=== PATIENT | female | born 1970 | race Caucasian/White ===

== ENCOUNTER 2018-09-09 06:10 | Day surgery (SDC) | payer OTHER ==
[~2018-09-09] VITALS: Ht 160 cm; Wt 63.5 kg
[2018-09-09] MEDS ORDERED: CEFAZOLIN 2 GM IVPB PREMIX 50 ML IV ONE (07:54)
[2018-09-09] MEDS ORDERED: fentaNYL CITRATE/PF 100 MCG/2 ML AMP IVP ONE (08:00)
[2018-09-09] MEDS ORDERED: WATER FOR IRRIGATION,STERILE 1,000 ML IRRIG.SOLN IR ONE (08:00)
[2018-09-09] MEDS ORDERED: SEVOFLURANE 15 MIN GAS INH ONE (08:00)
[2018-09-09] MEDS ORDERED: LR 1,000 ML IV.SOLN IV ONE (08:00)
[2018-09-09] MEDS ORDERED: MIDAZOLAM HCL 5 MG/5 ML VIAL IVP ONE (08:00)
[2018-09-09] MEDS ORDERED: ONDANSETRON HCL 4 MG/2 ML VIAL IVP ONE (08:00)
[2018-09-09] MEDS ORDERED: ROCURONIUM BROMIDE 10 MG/ML (ZEMURON) IV ONE (08:00)
[2018-09-09] MEDS ORDERED: PROPOFOL 200MG/ 20ML VIAL (DIPRIVAN) IV ONE (08:00)
[2018-09-09] MEDS ORDERED: DEXAMETHASONE SOD PHOSPHATE 4 MG/ML VIAL IVP ONE (08:00)
[2018-09-09] MEDS ORDERED: LABETALOL 100 MG/ 20ML VIAL IVP ONE (08:00)
[2018-09-09] MEDS ORDERED: ROPIVACAINE HCL/PF 0.2% (NAROPIN) 200 ML PLAST..BAG EP ONE (08:01)
[2018-09-09] MEDS ORDERED: ONDANSETRON HCL 4 MG/2 ML VIAL IVP PRN (09:00)
[2018-09-09] MEDS ORDERED: fentaNYL CITRATE/PF 100 MCG/2 ML AMP IVP PRN ×2 (09:00)
[2018-09-09] MEDS ORDERED: OXYCODONE/ACETAMINOPHEN 5-325 TABLET PO PRN ×2 (10:15)
[2018-09-09] MEDS ORDERED: HYDROcodone/ACETAMIN 5-325 MG TAB (NORCO/ VICODIN) PO PRN (10:15)
[2018-09-09] MEDS ORDERED: ONDANSETRON HCL 4 MG/2 ML VIAL IM PRN (10:15)
[2018-09-09] MEDS ORDERED: hydrALAZINE HCL 20 MG/ML VIAL ONE (10:33)
[2018-09-09] MEDS ORDERED: fentaNYL CITRATE/PF 100 MCG/2 ML AMP ONE (11:02)
[2018-09-09] MEDS ORDERED: HYDROmorphone 1 MG INJ. 1 MG/ML AMPUL ONE (11:45)
[2018-09-09] MEDS ORDERED: HYDROmorphone 2 MG/ML VIAL IVP ONE (12:00)
[2018-09-09 12:06] VITALS: BP_SYST 128
[2018-09-09] MEDS ORDERED: KETOROLAC TROMETHAMINE 30 MG VIAL IVP ONE (13:00)
== END 2018-09-09 16:00 | disposition home or self-care (01) ==
LOC: SDS 06:10 → SMU 06:10 → SDS 16:00
PROVIDERS: ATTEND Specialist
DX: N80.0 Endometriosis of uterus (principal); N92.0 Excessive and frequent menstruation with regular cycle; N30.10 Interstitial cystitis (chronic) without hematuria; N83.8 Other noninflammatory disorders of ovary, fallopian tube and broad ligament; N73.6 Female pelvic peritoneal adhesions (postinfective); I10 Essential (primary) hypertension; Z90.710 Acquired absence of both cervix and uterus; Z98.84 Bariatric surgery status
CPT/HCPCS: 58552; 64488; 88307; C1727; J0360; J0690; J1100; J1170; J2250; J2405; J2704; J3010; J3490; J7120; E0190